=== PATIENT | male | born 1995 | race Caucasian/White ===

== ENCOUNTER 2017-11-28 16:38 | Emergency (ER) | payer MEDICAID, OTHER ==
[2017-11-28 16:49] VITALS: BP 122/78
--- NOTE | 2017-11-28 17:01 | EDM.PDOC ---
ED HPI GENERAL MEDICAL PROBLEM - General Chief Complaint: Bite:Animal, Insect Stated Complaint: BEE STING Time Seen by Provider: 11/28/17 16:40 Source of Information: Reports: Patient, RN, RN Notes Reviewed History Limitations: Reports: No Limitations - History of Present Illness INITIAL COMMENTS - FREE TEXT/NARRATIVE: Patient presents to the ED at [facility] with swelling of the left hand from a bee sting. Patient states he was stung by a bee on the palmar surface of the left hand last evening. He has tried taking Benadryl without any relief. He has been icing the hand as well. No SOB or breathing problems. No hives. No urticaria or itching. Reaction is local to the left hand. No chest pain. No focal neurological deficits. - Related Data Allergies Allergy/AdvReac Type Severity Reaction Status Date / Time Penicillins Allergy Rash Verified 11/28/17 16:51 Home Meds: Home Meds Accutane 1 tray TOP ASDIRECTED 05/11/16 [History] Prednisone [IMW: Prednisone] 10 mg PO ASDIRECTED PRN 05/11/16 [History] predniSONE [Deltasone] 20 mg PO BID 5 Days #10 tablet 11/28/17 [Rx] Past Medical History - Past Health History Medical/Surgical History: Denies Medical/Surgical History ED ROS GENERAL - Review of Systems Review Of Systems: See Below Constitutional: Denies: Fever, Chills, Weakness Respiratory: Denies: Shortness of Breath, Cough Cardiovascular: Denies: Chest Pain, Palpitations GI/Abdominal: Denies: Abdominal Pain, Nausea, Vomiting Musculoskeletal: Reports: Other (swelling of left hand) Skin: Reports: No Symptoms Neurological: Reports: No Symptoms ED EXAM, ANIMAL BITE - Physical Exam Exam: See Below Exam Limited By: No Limitations General Appearance: Alert, No Apparent Distress Respiratory/Chest: No Respiratory Distress, Lungs Clear, Normal Breath Sounds Cardiovascular: Normal Peripheral Pulses, Regular Rate, Rhythm Peripheral Pulses: 2+: Radial (L), Radial (R) GI/Abdominal: Normal Bowel Sounds, Soft, Non-Tender Extremities: Increased Warmth, Redness, Other (mild redness and warmth of left hand; no evidence of infection; skin intact) Neurological: Alert, Oriented Skin Exam: Warm/Dry Course - Vital Signs Last Recorded V/S: Last Vital Signs Temp 37.7 C 11/28/17 16:40 Pulse 100 11/28/17 16:40 Resp 18 11/28/17 16:40 BP 122/78 11/28/17 16:40 Pulse Ox 98 11/28/17 16:40 Departure - Departure Time of Disposition: 17:02 Disposition: Home, Self-Care 01 Condition: Good Clinical Impression: Bee sting reaction Qualifiers: Encounter type: initial encounter Injury intent: accidental or unintentional Qualified Code(s): T63.441A - Toxic effect of venom of bees, accidental ( unintentional), initial encounter - Discharge Information *PRESCRIPTION DRUG MONITORING PROGRAM REVIEWED*: Not Applicable *COPY OF PRESCRIPTION DRUG MONITORING REPORT IN PATIENT RONEL: Not Applicable Prescriptions: predniSONE [Deltasone] 20 mg PO BID 5 Days #10 tablet Instructions: Bee, Wasp, or Hornet Sting, Adult Additional Instructions: 1. Stay well hydrated and rest 2. Take steroid for the full coarse, even if your symptoms are better 3. Ice left hand several times a day and keep elevated 4. See your Primary as symptoms warrant - Problem List Review Problem List Initiated/Reviewed/Updated: Yes - Assessment/Plan Assessment:: bee sting with local reaction Plan: Will give IM Solumedrol for immediate relief. Start 5 day burst dose of Prednisone. Ice several times a day; keep elevated. See primary as symptoms warrant.
[2017-11-28] MEDS: methylPREDNISolone Sodium Succinate 125 MG/2 ML SDV IM ONE (17:06)
== END 2017-11-28 17:20 | disposition home or self-care (01) ==
LOC: VM.ED 16:38
DX: T63.441A Toxic effect of venom of bees, accidental (unintentional), initial encounter (principal); M79.89 Other specified soft tissue disorders; Z88.0 Allergy status to penicillin
CPT/HCPCS: 96372; 99282; J2930